=== PATIENT | male | born 1970 | race Caucasian/White ===

== ENCOUNTER 2020-08-05 08:58 | Day surgery (SDC) | payer OTHER ==
[~2020-08-05] VITALS: Ht 182.9 cm; Wt 91.1 kg
[2020-08-05] MEDS ORDERED: VIT1CAPS12 (09:13)
[2020-08-05] MEDS ORDERED: CENTRUM SILVER1 EAC2 (09:13)
== END 2020-08-05 11:22 | disposition home or self-care (01) ==
LOC: ORSCSDS 08:58
DX: Z12.11 Encounter for screening for malignant neoplasm of colon (principal); K63.5 Polyp of colon; K57.30 Diverticulosis of large intestine without perforation or abscess without bleeding; K64.1 Second degree hemorrhoids; F17.210 Nicotine dependence, cigarettes, uncomplicated
CPT/HCPCS: 88305; J2704; J7120